=== PATIENT | male | born 1965 | race Caucasian/White ===

== ENCOUNTER 2018-06-12 10:44 | Emergency (ER) | payer OTHER ==
[2018-06-12 11:13] VITALS: BP 152/84; PULSE 84; TEMP 97.8; BMI 29.1
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
[2018-06-12 12:14] LABS: BASO % 0.7 % (0-2.0); EOS % 0.3 % (0-4.5); HEMATOCRIT 46.1 % (35.4-49); HEMOGLOBIN 16.1 GM/dL (11.7-16.9); LYMPH % 19.1 % (8-40); MCH 30.4 pg (25.7-33.7); MEAN CELL VOLUME 86.8 fl (80-96); MEAN PLT VOLUME 7.9 fl (7.5-11.1); MONO % 7.3 % (3.8-10.2); NEUT % 72.6 % (42.8-82.8); PLATELET COUNT 359 K/MM3 (134-434); RBC 5.31 M/mm3 (4.00-5.60)
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
[2018-06-12 14:10] LABS: ALBUMIN 4.2 g/dl (3.4-5.0); ALK PHOS 137 U/L (45-117); ANION GAP 6 MMOL/L (8-16); BILIRUBIN,TOTAL 0.5 mg/dL (0.2-1); BLOOD UREA NITROGEN 10 mg/dL (7-18); CALCIUM 9.3 mg/dL (8.5-10.1); CHLORIDE 106 mmol/L (98-107); CO2 25 mmol/L (21-32); CREATININE 0.8 mg/dL (0.55-1.3); GLUCOSE,RANDOM 105 mg/dL (74-106); POTASSIUM 4.2 mmol/L (3.5-5.1); SGOT/AST 16 U/L (15-37); SGPT/ALT 38 U/L (13-61); SODIUM 138 mmol/L (136-145); TOT PROT 7.4 g/dl (6.4-8.2)
[2018-06-12 14:16] LABS: INR 0.92 (0.83-1.09); PROTHROMBIN TIME (PATIENT) 10.9 SEC (9.7-13.0)
[2018-06-12] MEDS ORDERED: CYCLOBENZAPRINE HCL 10 MG TABLET (FP) PO ONE (15:58)
[2018-06-12] MEDS ORDERED: ACETAMINOPHEN 1000 MG/100 ML VIAL (NON FORMULARY) IVPB ONE (16:00)
[2018-06-12] MEDS ORDERED: ACETAMINOPHEN INJECTION 100 ML IVPB ONE (16:18)
[2018-06-12] MEDS ORDERED: CYCLOBENZAPRINE HCL 10 MG TABLET (FP) ONE (16:18)
== END 2018-06-12 17:16 | disposition home or self-care (01) ==
LOC: JER 10:44 → JERFT 10:44 → JER 17:16
PROC: 3E033NZ Introduction of Analgesics, Hypnotics, Sedatives into Peripheral Vein, Percutaneous Approach (ICD-10-PCS; principal; 2018-06-12)
DX: R51 Headache (principal); M54.2 Cervicalgia; M54.6 Pain in thoracic spine; M54.5 Low back pain; R07.9 Chest pain, unspecified; R10.9 Unspecified abdominal pain; R04.0 Epistaxis; V49.49XA Driver injured in collision with other motor vehicles in traffic accident, initial encounter; Y92.488 Other paved roadways as the place of occurrence of the external cause; Y93.89 Activity, other specified; Y99.8 Other external cause status
CPT/HCPCS: 36415; 70450-TC; 70486-TC; 71260-TC; 72125-TC; 72128-TC; 72131-TC; 74177-TC; 80053; 85025; 85610; 99283-25; J0131

== ENCOUNTER 2025-02-01 13:32 | Emergency (ER) | payer OTHER ==
[2025-02-01 13:49] VITALS: BP 139/77; PULSE 107; RESP 16; TEMP 98.2; BMI 27.9
[2025-02-01] MEDS ORDERED: ACETAMINOPHEN 500 MG TABLET (FP) ONE (14:29)
[2025-02-01] MEDS ORDERED: LIDOCAINE 4% PATCH TP ONE (14:29)
[2025-02-01] MEDS: LIDOCAINE 4% PATCH TP ONE (14:33)
[2025-02-01] MEDS: ACETAMINOPHEN 500 MG TABLET (FP) PO ONE (14:33)
[2025-02-01] MEDS ORDERED: LIDOCAINE PATCH REMOVAL MC SCH (22:00)
== END 2025-02-01 17:13 | disposition home or self-care (01) ==
LOC: JER 13:32
DX: M54.50 Low back pain, unspecified (principal); M54.2 Cervicalgia; R51.9 Headache, unspecified; V89.2XXA Person injured in unspecified motor-vehicle accident, traffic, initial encounter; Y92.410 Unspecified street and highway as the place of occurrence of the external cause
CPT/HCPCS: 70450-TC; 72125-TC; 99284-25